=== PATIENT | male | born 1945 | race Caucasian/White ===

== ENCOUNTER 2024-03-14 16:08 | Emergency (ER) | payer MEDICARE ==
[2024-03-14] MEDS: Sodium Chloride 0.9% 1,000 ML IV ONE (16:46)
[2024-03-14] MEDS: Famotidine 20 MG/2 ML SDV IVPUSH ONE (16:47)
[2024-03-14] MEDS: methylPREDNISolone Sodium Succinate 125 MG/2 ML SDV IVPUSH ONE (16:49)
[2024-03-14] MEDS: Ondansetron 4 MG/2 ML SDV IVPUSH ONE (16:49)
== END 2024-03-14 18:31 | disposition home or self-care (01) ==
LOC: JP.ED 16:08
DX: T63.481A Toxic effect of venom of other arthropod, accidental (unintentional), initial encounter (principal); Z88.8 Allergy status to other drugs, medicaments and biological substances; Z88.1 Allergy status to other antibiotic agents; Z79.82 Long term (current) use of aspirin; Z79.899 Other long term (current) drug therapy; Z79.84 Long term (current) use of oral hypoglycemic drugs
CPT/HCPCS: 96361; 96374; 96375; 99283; J2405; J2919; J3490; J7030